=== PATIENT | female | born 1940 | race Caucasian/White ===

== ENCOUNTER 2021-05-10 18:38 | Inpatient (IN) | payer OTHER ==
[2021-05-10 19:13] VITALS: BMI 37.9
[2021-05-10] MEDS ORDERED: DEXAMETHASONE SOD PHOSPHATE 10 MG/1 ML VIAL IVPUSH ONE (20:15)
[2021-05-10] MEDS ORDERED: DEXAMETHASONE SOD PHOSPHATE 4 MG/1 ML VIAL IVPUSH ONE (20:28)
[2021-05-10] MEDS ORDERED: FUROSEMIDE 40 MG/4 ML INJECTABLE VIAL IVPUSH ONE (20:38)
[2021-05-10] MEDS ORDERED: FUROSEMIDE 40 MG/4 ML INJECTABLE VIAL ONE (20:44)
[2021-05-10] MEDS ORDERED: DEXAMETHASONE SOD PHOSPHATE 10 MG/1 ML VIAL ONE (20:44)
[2021-05-10 22:03] LABS: BASO % 0.5 % (0-2.0); EOS % 0.9 % (0-4.5); HEMATOCRIT 22.1 % (32.4-45.2); HEMOGLOBIN 7.2 GM/dL (10.7-15.3); MCH 26.1 pg (25.7-33.7); MCHC 32.6 g/dl (32.0-36.0); MEAN CELL VOLUME 80.2 fl (80-96); MEAN PLT VOLUME 8.4 fl (7.5-11.1); MONO % 11.1 % (3.8-10.2); NEUT % 77.5 % (42.8-82.8); PLATELET COUNT 251 10^3/uL (134-434); RBC 2.76 M/mm3 (3.60-5.2); RDW 16.4 % (11.6-15.6); WHITE BLOOD COUNT 4.8 K/mm3 (4.0-10.0)
[2021-05-10 22:09] LABS: INR 2.25 (0.83-1.09); PROTHROMBIN TIME (PATIENT) 26.5 SEC (9.7-13.0)
[2021-05-10 22:11] LABS: ACTIVATED PTT 45.4 SECONDS (25.2-36.5)
[2021-05-10 22:21] LABS: CHLORIDE 103 mmol/L (98-107); SODIUM 139 mmol/L (136-145)
[2021-05-10 22:23] LABS: CALCIUM 7.9 mg/dL (8.5-10.1)
[2021-05-10 22:24] LABS: ALBUMIN 2.4 g/dl (3.4-5.0); ANION GAP 10 MMOL/L (8-16); BLOOD UREA NITROGEN 38.6 mg/dL (7-18); CO2 27 mmol/L (21-32); GLUCOSE,RANDOM 105 mg/dL (74-106)
[2021-05-10 22:27] LABS: CREATININE 1.2 mg/dL (0.55-1.3); SGOT/AST 25 U/L (15-37); SGPT/ALT 17 U/L (13-61)
[2021-05-10 22:28] LABS: BILIRUBIN,TOTAL 0.5 mg/dL (0.2-1)
[2021-05-10 22:29] LABS: TOT PROT 5.9 g/dl (6.4-8.2)
[2021-05-10 22:30] LABS: ALK PHOS 74 U/L (45-117)
[2021-05-10 22:32] LABS: N-TERMINAL BNP 7477.6 pg/ml (5-450)
[2021-05-11] MEDS ORDERED: ALBUTEROL SO4 2.5/IPRATROPIUM 0.5 INH SOL 3 ML VIAL.NEB. NEB ONE ×3 (07:37→10:55)
[2021-05-11] MEDS ORDERED: ALBUTEROL SO4 0.083% IH SOL 2.5 MG/3 ML VIAL.NEB. NEB PRN (07:40)
[2021-05-11] MEDS ORDERED: ACETAMINOPHEN 325 MG TABLET (FP) PO PRN (07:56)
[2021-05-11] MEDS ORDERED: ALBUTEROL SO4 2.5/IPRATROPIUM 0.5 INH SOL 3 ML VIAL.NEB. NEB SCH (08:00)
[2021-05-11 08:58] LABS: BASO % 0.3 % (0-2.0); HEMATOCRIT 27.4 % (32.4-45.2); LYMPH % 10.6 % (8-40); MCH 26.7 pg (25.7-33.7); MEAN CELL VOLUME 81.1 fl (80-96); MEAN PLT VOLUME 7.9 fl (7.5-11.1); NEUT % 81.1 % (42.8-82.8); PLATELET COUNT 301 10^3/uL (134-434); RBC 3.38 M/mm3 (3.60-5.2); RDW 16.3 % (11.6-15.6); WHITE BLOOD COUNT 4.2 K/mm3 (4.0-10.0)
[2021-05-11] MEDS ORDERED: ASPIRIN 81 MG CHEWABLE TABLETS ONE (09:10)
[2021-05-11] MEDS ORDERED: FUROSEMIDE 40 MG TABLET (FP) ONE (09:10)
[2021-05-11] MEDS ORDERED: ASCORBIC ACID 500 MG TABLET (FP) ONE (09:10)
[2021-05-11] MEDS ORDERED: DEXAMETHASONE SOD PHOSPHATE 10 MG/1 ML VIAL ONE (09:10)
[2021-05-11] MEDS ORDERED: ZINC SULFATE 220 MG CAPSULE (FP) ONE (09:11)
[2021-05-11] MEDS ORDERED: metoPROLOL SUCCINATE 25 MG TAB.SR.24H (FP) ONE (09:11)
[2021-05-11] MEDS ORDERED: BACITRACIN 0.9 GM PACKET ONE ×2 (09:11→09:21)
[2021-05-11] MEDS ORDERED: AMIODARONE HCL 200 MG TABLET ONE (09:11)
[2021-05-11] MEDS ORDERED: APIXABAN 5 MG TABLET ONE (09:11)
[2021-05-11 09:23] LABS: CALCIUM 8.1 mg/dL (8.5-10.1)
[2021-05-11 09:24] LABS: BLOOD UREA NITROGEN 36.2 mg/dL (7-18); MAGNESIUM 1.8 mg/dL (1.8-2.4)
[2021-05-11 09:27] LABS: CREATININE 1.1 mg/dL (0.55-1.3)
[2021-05-11] MEDS: APIXABAN 5 MG TABLET PO SCH ×2 (09:30→22:57)
[2021-05-11] MEDS: ZINC SULFATE 220 MG CAPSULE (FP) PO SCH (09:30)
[2021-05-11] MEDS: ASCORBIC ACID 250 MG TABLET (FP) PO SCH (09:30)
[2021-05-11] MEDS: metoPROLOL SUCCINATE 25 MG TAB.SR.24H (FP) PO SCH (09:30)
[2021-05-11] MEDS: BACITRACIN 15 GM TUBE TOPICAL OINTMENT TP SCH ×2 (09:30→22:57)
[2021-05-11] MEDS: DEXAMETHASONE SOD PHOSPHATE 10 MG/1 ML VIAL IVPUSH SCH (09:30)
[2021-05-11] MEDS: FLUTICASONE/UMECLIDIN/VILANTER(100-62.5-25 TRELEGY ELLIPTA) INAHLER IH SCH (09:47)
[2021-05-11] MEDS: MULTIVITAMINS THER W-MINERALS COMBO TABLET (FP) PO SCH (09:47)
[2021-05-11] MEDS: NYSTATIN 100,000 UNIT/GM TOPICAL CREAM 15 GM TUBE TP SCH ×2 (09:47→23:04)
[2021-05-11] MEDS ORDERED: ASPIRIN 81 MG CHEWABLE TABLETS PO SCH (10:00)
[2021-05-11] MEDS ORDERED: FUROSEMIDE 40 MG TABLET (FP) PO SCH (10:00)
[2021-05-11] MEDS ORDERED: AMIODARONE HCL 200 MG TABLET PO SCH (10:00)
[2021-05-11] MEDS ORDERED: CHOLECALCIFEROL (VIT D3) 5000 UNITS (125 MCG) CAP PO ONE (10:00)
[2021-05-11] MEDS ORDERED: REMDESIVIR 200 MG in SODIUM CHLORIDE 250 ML IVPB ONE (17:30)
[2021-05-11] MEDS ORDERED: DOCUSATE SODIUM 100 MG CAPSULE (FP) PO SCH (22:00)
[2021-05-11] MEDS ORDERED: TERAZOSIN HCL 5 MG CAPSULE PO SCH (22:00)
[2021-05-11] MEDS: EZETIMIBE 10 MG TABLET (FP) PO SCH (22:57)
[2021-05-11] MEDS: MONTELUKAST NA 10 MG TABLET PO SCH (22:57)
[2021-05-11] MEDS: ATORVASTATIN CA 40 MG TABLET (FP) PO SCH (22:57)
[2021-05-12] MEDS: TOLTERODINE TARTRATE LA 4 MG CAP.SR.24H (FP) PO SCH ×2 (01:12→21:24)
[2021-05-12] MEDS ORDERED: PT OWN MED DRAWER 7, Y5N ONE ×4 (09:18→20:35)
[2021-05-12] MEDS: FUROSEMIDE 40 MG/4 ML INJECTABLE VIAL IVPUSH SCH (09:51)
[2021-05-12] MEDS: DEXAMETHASONE SOD PHOSPHATE 10 MG/1 ML VIAL IVPUSH SCH (09:52)
[2021-05-12] MEDS: MULTIVITAMINS THER W-MINERALS COMBO TABLET (FP) PO SCH (09:53)
[2021-05-12] MEDS: ZINC SULFATE 220 MG CAPSULE (FP) PO SCH (09:53)
[2021-05-12] MEDS: metoPROLOL SUCCINATE 25 MG TAB.SR.24H (FP) PO SCH (09:53)
[2021-05-12] MEDS: AMIODARONE HCL 200 MG TABLET PO SCH (09:54)
[2021-05-12] MEDS: APIXABAN 5 MG TABLET PO SCH ×2 (09:54→21:24)
[2021-05-12] MEDS: ASCORBIC ACID 250 MG TABLET (FP) PO SCH (09:54)
[2021-05-12] MEDS: FLUTICASONE/UMECLIDIN/VILANTER(100-62.5-25 TRELEGY ELLIPTA) INAHLER IH SCH (09:56)
[2021-05-12] MEDS: CHOLECALCIFEROL (VIT D3) 1,000 UNIT (25 MCG) TABLET PO SCH (10:01)
[2021-05-12] MEDS: BACITRACIN 15 GM TUBE TOPICAL OINTMENT TP SCH ×2 (12:12→21:24)
[2021-05-12] MEDS: NYSTATIN 100,000 UNIT/GM TOPICAL CREAM 15 GM TUBE TP SCH ×2 (12:13→21:24)
[2021-05-12] MEDS ORDERED: DEXTROSE 5%-WATER 100 ML IVPB ONE (15:48)
[2021-05-12] MEDS: CEFTRIAXONE 2 GM in DEXTROSE 5%-WATER 2 GM/100 ML BAG IVPB SCH (16:05)
[2021-05-12] MEDS ORDERED: BISMUTH SUBSALICYLATE 524 MG/30 ML PO PRN (17:21)
[2021-05-12] MEDS: REMDESIVIR 100 MG in SODIUM CHLORIDE 250 ML IVPB SCH (18:14)
[2021-05-12] MEDS: ATORVASTATIN CA 40 MG TABLET (FP) PO SCH (21:24)
[2021-05-12] MEDS: MONTELUKAST NA 10 MG TABLET PO SCH (21:25)
[2021-05-12] MEDS: EZETIMIBE 10 MG TABLET (FP) PO SCH (21:25)
[2021-05-13] MEDS ORDERED: DEXTROSE 5%-WATER 100 ML IVPB ONE (09:20)
[2021-05-13] MEDS: CEFTRIAXONE 2 GM in DEXTROSE 5%-WATER 2 GM/100 ML BAG IVPB SCH (09:37)
[2021-05-13] MEDS: metoPROLOL SUCCINATE 25 MG TAB.SR.24H (FP) PO SCH (09:37)
[2021-05-13] MEDS: MULTIVITAMINS THER W-MINERALS COMBO TABLET (FP) PO SCH (09:38)
[2021-05-13] MEDS: CHOLECALCIFEROL (VIT D3) 1,000 UNIT (25 MCG) TABLET PO SCH (09:38)
[2021-05-13] MEDS: AMIODARONE HCL 200 MG TABLET PO SCH (09:38)
[2021-05-13] MEDS: APIXABAN 5 MG TABLET PO SCH ×2 (09:38→21:58)
[2021-05-13] MEDS: DEXAMETHASONE SOD PHOSPHATE 10 MG/1 ML VIAL IVPUSH SCH ×3 (09:38→21:55)
[2021-05-13] MEDS: ZINC SULFATE 220 MG CAPSULE (FP) PO SCH (09:38)
[2021-05-13] MEDS: FUROSEMIDE 40 MG/4 ML INJECTABLE VIAL IVPUSH SCH (09:39)
[2021-05-13] MEDS: ASCORBIC ACID 250 MG TABLET (FP) PO SCH (09:39)
[2021-05-13] MEDS: ALBUTEROL SO4 HFA INHALER IH PRN (09:39)
[2021-05-13] MEDS: BACITRACIN 15 GM TUBE TOPICAL OINTMENT TP SCH ×2 (09:39→21:55)
[2021-05-13] MEDS: NYSTATIN 100,000 UNIT/GM TOPICAL CREAM 15 GM TUBE TP SCH ×2 (09:39→21:58)
[2021-05-13] MEDS: FLUTICASONE/UMECLIDIN/VILANTER(100-62.5-25 TRELEGY ELLIPTA) INAHLER IH SCH (09:39)
[2021-05-13] MEDS: PANTOPRAZOLE SODIUM 40 MG VIAL IVPUSH SCH (09:39)
[2021-05-13] MEDS: REMDESIVIR 100 MG in SODIUM CHLORIDE 250 ML IVPB SCH (17:32)
[2021-05-13] MEDS: ATORVASTATIN CA 40 MG TABLET (FP) PO SCH (21:58)
[2021-05-13] MEDS: EZETIMIBE 10 MG TABLET (FP) PO SCH (21:58)
[2021-05-13] MEDS: TOLTERODINE TARTRATE LA 4 MG CAP.SR.24H (FP) PO SCH (21:58)
[2021-05-13] MEDS: MONTELUKAST NA 10 MG TABLET PO SCH (21:58)
[2021-05-14 07:55] LABS: CALCIUM 7.9 mg/dL (8.5-10.1)
[2021-05-14 07:56] LABS: ALBUMIN 2.3 g/dl (3.4-5.0)
[2021-05-14 08:00] LABS: BILIRUBIN,TOTAL 0.5 mg/dL (0.2-1); TOT PROT 5.3 g/dl (6.4-8.2)
[2021-05-14 08:02] LABS: BLOOD UREA NITROGEN 39.3 mg/dL (7-18)
[2021-05-14] MEDS ORDERED: PT OWN MED DRAWER 7, Y5N ONE ×2 (09:27→21:42)
[2021-05-14] MEDS ORDERED: DEXTROSE 5%-WATER 100 ML IVPB ONE (09:28)
[2021-05-14] MEDS: CHOLECALCIFEROL (VIT D3) 1,000 UNIT (25 MCG) TABLET PO SCH (09:37)
[2021-05-14] MEDS: MULTIVITAMINS THER W-MINERALS COMBO TABLET (FP) PO SCH (09:37)
[2021-05-14] MEDS: APIXABAN 5 MG TABLET PO SCH ×2 (09:37→21:46)
[2021-05-14] MEDS: ZINC SULFATE 220 MG CAPSULE (FP) PO SCH (09:37)
[2021-05-14] MEDS: PANTOPRAZOLE SODIUM 40 MG VIAL IVPUSH SCH (09:37)
[2021-05-14] MEDS: ASCORBIC ACID 250 MG TABLET (FP) PO SCH (09:37)
[2021-05-14] MEDS: AMIODARONE HCL 200 MG TABLET PO SCH (09:38)
[2021-05-14] MEDS: BACITRACIN 15 GM TUBE TOPICAL OINTMENT TP SCH ×2 (09:38→21:47)
[2021-05-14] MEDS: DEXAMETHASONE SOD PHOSPHATE 10 MG/1 ML VIAL IVPUSH SCH (09:38)
[2021-05-14] MEDS: metoPROLOL SUCCINATE 25 MG TAB.SR.24H (FP) PO SCH (09:39)
[2021-05-14] MEDS: FLUTICASONE/UMECLIDIN/VILANTER(100-62.5-25 TRELEGY ELLIPTA) INAHLER IH SCH (09:39)
[2021-05-14] MEDS: CEFTRIAXONE 2 GM in DEXTROSE 5%-WATER 2 GM/100 ML BAG IVPB SCH (09:39)
[2021-05-14] MEDS: NYSTATIN 100,000 UNIT/GM TOPICAL CREAM 15 GM TUBE TP SCH ×2 (09:39→21:47)
[2021-05-14] MEDS: FUROSEMIDE 40 MG/4 ML INJECTABLE VIAL IVPUSH SCH (09:39)
[2021-05-14] MEDS: REMDESIVIR 100 MG in SODIUM CHLORIDE 250 ML IVPB SCH (17:04)
[2021-05-14] MEDS: methylPREDNISolone NA SUCC 40 MG/1 ML VIAL IVPUSH SCH ×2 (17:04→21:46)
[2021-05-14] MEDS: MONTELUKAST NA 10 MG TABLET PO SCH (21:46)
[2021-05-14] MEDS: ATORVASTATIN CA 40 MG TABLET (FP) PO SCH (21:46)
[2021-05-14] MEDS: EZETIMIBE 10 MG TABLET (FP) PO SCH (21:46)
[2021-05-14] MEDS: TOLTERODINE TARTRATE LA 4 MG CAP.SR.24H (FP) PO SCH (21:47)
[2021-05-15] MEDS: methylPREDNISolone NA SUCC 40 MG/1 ML VIAL IVPUSH SCH ×4 (02:27→21:12)
[2021-05-15 08:10] LABS: HEMATOCRIT 27.4 % (32.4-45.2); LYMPH % 6.6 % (8-40); MCH 26.3 pg (25.7-33.7); MCHC 32.6 g/dl (32.0-36.0); MEAN CELL VOLUME 80.8 fl (80-96); MEAN PLT VOLUME 8.4 fl (7.5-11.1); MONO % 4.9 % (3.8-10.2); NEUT % 88.5 % (42.8-82.8); PLATELET COUNT 371 10^3/uL (134-434)
[2021-05-15 08:33] LABS: CALCIUM 8.2 mg/dL (8.5-10.1)
[2021-05-15 08:34] LABS: ALBUMIN 2.3 g/dl (3.4-5.0)
[2021-05-15 08:37] LABS: CREATININE 0.9 mg/dL (0.55-1.3)
[2021-05-15 08:39] LABS: BILIRUBIN,TOTAL 0.8 mg/dL (0.2-1); TOT PROT 5.5 g/dl (6.4-8.2)
[2021-05-15] MEDS ORDERED: DEXTROSE 5%-WATER 100 ML IVPB ONE (09:01)
[2021-05-15] MEDS: CEFTRIAXONE 2 GM in DEXTROSE 5%-WATER 2 GM/100 ML BAG IVPB SCH (10:04)
[2021-05-15] MEDS: ZINC SULFATE 220 MG CAPSULE (FP) PO SCH (10:06)
[2021-05-15] MEDS: FUROSEMIDE 40 MG/4 ML INJECTABLE VIAL IVPUSH SCH (10:06)
[2021-05-15] MEDS: APIXABAN 5 MG TABLET PO SCH ×2 (10:06→21:16)
[2021-05-15] MEDS: PANTOPRAZOLE SODIUM 40 MG VIAL IVPUSH SCH (10:06)
[2021-05-15] MEDS: metoPROLOL SUCCINATE 25 MG TAB.SR.24H (FP) PO SCH (10:07)
[2021-05-15] MEDS: MULTIVITAMINS THER W-MINERALS COMBO TABLET (FP) PO SCH (10:07)
[2021-05-15] MEDS: CHOLECALCIFEROL (VIT D3) 1,000 UNIT (25 MCG) TABLET PO SCH (10:07)
[2021-05-15] MEDS: ASCORBIC ACID 250 MG TABLET (FP) PO SCH (10:07)
[2021-05-15] MEDS: AMIODARONE HCL 200 MG TABLET PO SCH (10:07)
[2021-05-15] MEDS: FLUTICASONE/UMECLIDIN/VILANTER(100-62.5-25 TRELEGY ELLIPTA) INAHLER IH SCH (10:08)
[2021-05-15] MEDS: BACITRACIN 15 GM TUBE TOPICAL OINTMENT TP SCH ×2 (10:08→21:13)
[2021-05-15] MEDS: NYSTATIN 100,000 UNIT/GM TOPICAL CREAM 15 GM TUBE TP SCH ×2 (10:08→23:51)
[2021-05-15] MEDS: ALBUTEROL SO4 HFA INHALER IH PRN (10:42)
[2021-05-15] MEDS ORDERED: PT OWN MED DRAWER 7, Y5N ONE ×3 (12:15→20:52)
[2021-05-15] MEDS: REMDESIVIR 100 MG in SODIUM CHLORIDE 250 ML IVPB SCH (18:45)
[2021-05-15] MEDS: TOLTERODINE TARTRATE LA 4 MG CAP.SR.24H (FP) PO SCH (21:12)
[2021-05-15] MEDS: ATORVASTATIN CA 40 MG TABLET (FP) PO SCH (21:12)
[2021-05-15] MEDS: EZETIMIBE 10 MG TABLET (FP) PO SCH (21:12)
[2021-05-15] MEDS: MONTELUKAST NA 10 MG TABLET PO SCH (21:12)
[2021-05-15] MEDS: MELATONIN 5 MG TABLETS PO PRN (21:12)
[2021-05-16] MEDS: methylPREDNISolone NA SUCC 40 MG/1 ML VIAL IVPUSH SCH ×4 (02:47→21:53)
[2021-05-16] MEDS ORDERED: DEXTROSE 5%-WATER 100 ML IVPB ONE (09:49)
[2021-05-16] MEDS ORDERED: PT OWN MED DRAWER 7, Y5N ONE ×2 (09:49→21:00)
[2021-05-16] MEDS: metoPROLOL SUCCINATE 25 MG TAB.SR.24H (FP) PO SCH (09:55)
[2021-05-16] MEDS: AMIODARONE HCL 200 MG TABLET PO SCH (09:55)
[2021-05-16] MEDS: MULTIVITAMINS THER W-MINERALS COMBO TABLET (FP) PO SCH (09:55)
[2021-05-16] MEDS: ZINC SULFATE 220 MG CAPSULE (FP) PO SCH (09:56)
[2021-05-16] MEDS: CHOLECALCIFEROL (VIT D3) 1,000 UNIT (25 MCG) TABLET PO SCH (09:56)
[2021-05-16] MEDS: FUROSEMIDE 40 MG/4 ML INJECTABLE VIAL IVPUSH SCH (09:56)
[2021-05-16] MEDS: APIXABAN 5 MG TABLET PO SCH ×2 (09:56→21:52)
[2021-05-16] MEDS: PANTOPRAZOLE SODIUM 40 MG VIAL IVPUSH SCH (09:56)
[2021-05-16] MEDS: BACITRACIN 15 GM TUBE TOPICAL OINTMENT TP SCH ×2 (09:57→21:51)
[2021-05-16] MEDS: CEFTRIAXONE 2 GM in DEXTROSE 5%-WATER 2 GM/100 ML BAG IVPB SCH (09:58)
[2021-05-16] MEDS: ASCORBIC ACID 250 MG TABLET (FP) PO SCH (09:58)
[2021-05-16] MEDS: NYSTATIN 100,000 UNIT/GM TOPICAL CREAM 15 GM TUBE TP SCH (09:58)
[2021-05-16] MEDS: FLUTICASONE/UMECLIDIN/VILANTER(100-62.5-25 TRELEGY ELLIPTA) INAHLER IH SCH (09:58)
[2021-05-16] MEDS: NYSTATIN 100000 UNIT/GM TOPICAL OINTMENT 15 GM TUBE TP SCH ×2 (12:09→21:53)
[2021-05-16] MEDS: ZINC OXIDE 20% TOPICAL OINTMENT 30 GM TUBE TP SCH ×2 (12:10→21:54)
[2021-05-16] MEDS: TOLTERODINE TARTRATE LA 4 MG CAP.SR.24H (FP) PO SCH (21:51)
[2021-05-16] MEDS: ATORVASTATIN CA 40 MG TABLET (FP) PO SCH (21:52)
[2021-05-16] MEDS: MONTELUKAST NA 10 MG TABLET PO SCH (21:52)
[2021-05-16] MEDS: MELATONIN 5 MG TABLETS PO PRN (21:53)
[2021-05-16] MEDS: EZETIMIBE 10 MG TABLET (FP) PO SCH (21:53)
[2021-05-17] MEDS: methylPREDNISolone NA SUCC 40 MG/1 ML VIAL IVPUSH SCH ×3 (02:30→15:04)
[2021-05-17] MEDS ORDERED: PT OWN MED DRAWER 7, Y5N ONE ×2 (08:46→21:27)
[2021-05-17] MEDS ORDERED: DEXTROSE 5%-WATER 100 ML IVPB ONE (08:47)
[2021-05-17] MEDS: MULTIVITAMINS THER W-MINERALS COMBO TABLET (FP) PO SCH (09:02)
[2021-05-17] MEDS: CHOLECALCIFEROL (VIT D3) 1,000 UNIT (25 MCG) TABLET PO SCH (09:02)
[2021-05-17] MEDS: ZINC SULFATE 220 MG CAPSULE (FP) PO SCH (09:02)
[2021-05-17] MEDS: AMIODARONE HCL 200 MG TABLET PO SCH (09:02)
[2021-05-17] MEDS: APIXABAN 5 MG TABLET PO SCH ×2 (09:02→21:33)
[2021-05-17] MEDS: ASCORBIC ACID 250 MG TABLET (FP) PO SCH (09:02)
[2021-05-17] MEDS: metoPROLOL SUCCINATE 25 MG TAB.SR.24H (FP) PO SCH (09:02)
[2021-05-17] MEDS: PANTOPRAZOLE 40 MG TABLET PO SCH (09:02)
[2021-05-17] MEDS: CEFTRIAXONE 2 GM in DEXTROSE 5%-WATER 2 GM/100 ML BAG IVPB SCH (09:02)
[2021-05-17] MEDS: FUROSEMIDE 40 MG/4 ML INJECTABLE VIAL IVPUSH SCH (09:02)
[2021-05-17] MEDS: NYSTATIN 100000 UNIT/GM TOPICAL OINTMENT 15 GM TUBE TP SCH ×2 (09:03→21:33)
[2021-05-17] MEDS: FLUTICASONE/UMECLIDIN/VILANTER(100-62.5-25 TRELEGY ELLIPTA) INAHLER IH SCH (09:03)
[2021-05-17] MEDS: ZINC OXIDE 20% TOPICAL OINTMENT 30 GM TUBE TP SCH ×2 (09:03→21:33)
[2021-05-17] MEDS: BACITRACIN 15 GM TUBE TOPICAL OINTMENT TP SCH ×2 (09:03→21:30)
[2021-05-17] MEDS: TOLTERODINE TARTRATE LA 4 MG CAP.SR.24H (FP) PO SCH (21:33)
[2021-05-17] MEDS: EZETIMIBE 10 MG TABLET (FP) PO SCH (21:33)
[2021-05-17] MEDS: ATORVASTATIN CA 40 MG TABLET (FP) PO SCH (21:33)
[2021-05-17] MEDS: MONTELUKAST NA 10 MG TABLET PO SCH (21:33)
[2021-05-17] MEDS: MELATONIN 5 MG TABLETS PO PRN (21:36)
[2021-05-18] MEDS: methylPREDNISolone NA SUCC 40 MG/1 ML VIAL IVPUSH SCH ×3 (01:18→21:12)
[2021-05-18 06:41] LABS: HEMATOCRIT 29.8 % (32.4-45.2); HEMOGLOBIN 9.7 GM/dL (10.7-15.3); MCH 26.2 pg (25.7-33.7); MCHC 32.5 g/dl (32.0-36.0); MEAN CELL VOLUME 80.5 fl (80-96); MEAN PLT VOLUME 8.4 fl (7.5-11.1); PLATELET COUNT 390 10^3/uL (134-434); RDW 17.4 % (11.6-15.6); WHITE BLOOD COUNT 12.8 K/mm3 (4.0-10.0)
[2021-05-18 06:58] LABS: CALCIUM 7.7 mg/dL (8.5-10.1)
[2021-05-18 06:59] LABS: ALBUMIN 2.2 g/dl (3.4-5.0); BLOOD UREA NITROGEN 41.6 mg/dL (7-18)
[2021-05-18 07:02] LABS: CREATININE 1.1 mg/dL (0.55-1.3)
[2021-05-18 07:03] LABS: BILIRUBIN,TOTAL 0.5 mg/dL (0.2-1)
[2021-05-18 07:04] LABS: TOT PROT 5.2 g/dl (6.4-8.2)
[2021-05-18] MEDS ORDERED: PT OWN MED DRAWER 7, Y5N ONE ×2 (08:34→21:01)
[2021-05-18] MEDS ORDERED: DEXTROSE 5%-WATER 100 ML IVPB ONE (08:34)
[2021-05-18] MEDS: CEFTRIAXONE 2 GM in DEXTROSE 5%-WATER 2 GM/100 ML BAG IVPB SCH (09:37)
[2021-05-18] MEDS: FUROSEMIDE 40 MG/4 ML INJECTABLE VIAL IVPUSH SCH (09:37)
[2021-05-18] MEDS: ZINC SULFATE 220 MG CAPSULE (FP) PO SCH (09:37)
[2021-05-18] MEDS: PANTOPRAZOLE 40 MG TABLET PO SCH (09:37)
[2021-05-18] MEDS: metoPROLOL SUCCINATE 25 MG TAB.SR.24H (FP) PO SCH (09:38)
[2021-05-18] MEDS: CHOLECALCIFEROL (VIT D3) 1,000 UNIT (25 MCG) TABLET PO SCH (09:38)
[2021-05-18] MEDS: AMIODARONE HCL 200 MG TABLET PO SCH (09:38)
[2021-05-18] MEDS: NYSTATIN 100000 UNIT/GM TOPICAL OINTMENT 15 GM TUBE TP SCH ×2 (09:38→21:13)
[2021-05-18] MEDS: FLUTICASONE/UMECLIDIN/VILANTER(100-62.5-25 TRELEGY ELLIPTA) INAHLER IH SCH (09:38)
[2021-05-18] MEDS: MULTIVITAMINS THER W-MINERALS COMBO TABLET (FP) PO SCH (09:38)
[2021-05-18] MEDS: APIXABAN 5 MG TABLET PO SCH ×2 (09:38→21:12)
[2021-05-18] MEDS: BACITRACIN 15 GM TUBE TOPICAL OINTMENT TP SCH ×2 (09:38→21:12)
[2021-05-18] MEDS: ZINC OXIDE 20% TOPICAL OINTMENT 30 GM TUBE TP SCH ×2 (09:39→21:13)
[2021-05-18] MEDS: ASCORBIC ACID 250 MG TABLET (FP) PO SCH (09:39)
[2021-05-18 10:34] LABS: ANISOCYTOSIS 1+; MACROCYTOSIS 0; PLATELET ESTIMATE NORMAL
[2021-05-18] MEDS: EZETIMIBE 10 MG TABLET (FP) PO SCH (21:12)
[2021-05-18] MEDS: ATORVASTATIN CA 40 MG TABLET (FP) PO SCH (21:12)
[2021-05-18] MEDS: MONTELUKAST NA 10 MG TABLET PO SCH (21:12)
[2021-05-18] MEDS: TOLTERODINE TARTRATE LA 4 MG CAP.SR.24H (FP) PO SCH (21:12)
[2021-05-19] MEDS ORDERED: PT OWN MED DRAWER 7, Y5N ONE ×3 (09:50→21:29)
[2021-05-19] MEDS: MULTIVITAMINS THER W-MINERALS COMBO TABLET (FP) PO SCH (09:53)
[2021-05-19] MEDS: CHOLECALCIFEROL (VIT D3) 1,000 UNIT (25 MCG) TABLET PO SCH (09:53)
[2021-05-19] MEDS: APIXABAN 5 MG TABLET PO SCH ×2 (09:53→21:33)
[2021-05-19] MEDS: metoPROLOL SUCCINATE 25 MG TAB.SR.24H (FP) PO SCH (09:53)
[2021-05-19] MEDS: AMIODARONE HCL 200 MG TABLET PO SCH (09:53)
[2021-05-19] MEDS: ZINC SULFATE 220 MG CAPSULE (FP) PO SCH (09:53)
[2021-05-19] MEDS: ASCORBIC ACID 250 MG TABLET (FP) PO SCH (09:53)
[2021-05-19] MEDS: PANTOPRAZOLE 40 MG TABLET PO SCH (09:54)
[2021-05-19] MEDS: CEFUROXIME AXETIL 500 MG TABLET PO SCH ×2 (09:54→17:22)
[2021-05-19] MEDS: FUROSEMIDE 40 MG/4 ML INJECTABLE VIAL IVPUSH SCH (09:56)
[2021-05-19] MEDS: BACITRACIN 15 GM TUBE TOPICAL OINTMENT TP SCH ×2 (09:56→21:33)
[2021-05-19] MEDS: ZINC OXIDE 20% TOPICAL OINTMENT 30 GM TUBE TP SCH ×2 (09:56→21:33)
[2021-05-19] MEDS: NYSTATIN 100000 UNIT/GM TOPICAL OINTMENT 15 GM TUBE TP SCH ×2 (09:56→21:33)
[2021-05-19] MEDS: FLUTICASONE/UMECLIDIN/VILANTER(100-62.5-25 TRELEGY ELLIPTA) INAHLER IH SCH (09:56)
[2021-05-19] MEDS: methylPREDNISolone NA SUCC 40 MG/1 ML VIAL IVPUSH SCH ×2 (09:56→21:32)
[2021-05-19] MEDS: MELATONIN 5 MG TABLETS PO PRN (21:32)
[2021-05-19] MEDS: ATORVASTATIN CA 40 MG TABLET (FP) PO SCH (21:33)
[2021-05-19] MEDS: TOLTERODINE TARTRATE LA 4 MG CAP.SR.24H (FP) PO SCH (21:33)
[2021-05-19] MEDS: EZETIMIBE 10 MG TABLET (FP) PO SCH (21:33)
[2021-05-19] MEDS: MONTELUKAST NA 10 MG TABLET PO SCH (21:33)
[2021-05-20] MEDS: ALBUTEROL SO4 HFA INHALER IH PRN (10:00)
[2021-05-20] MEDS: CHOLECALCIFEROL (VIT D3) 1,000 UNIT (25 MCG) TABLET PO SCH (10:13)
[2021-05-20] MEDS: PANTOPRAZOLE 40 MG TABLET PO SCH (10:13)
[2021-05-20] MEDS: metoPROLOL SUCCINATE 25 MG TAB.SR.24H (FP) PO SCH (10:14)
[2021-05-20] MEDS: FUROSEMIDE 40 MG/4 ML INJECTABLE VIAL IVPUSH SCH (10:14)
[2021-05-20] MEDS: AMIODARONE HCL 200 MG TABLET PO SCH (10:14)
[2021-05-20] MEDS: methylPREDNISolone NA SUCC 40 MG/1 ML VIAL IVPUSH SCH ×2 (10:14→17:40)
[2021-05-20] MEDS: MULTIVITAMINS THER W-MINERALS COMBO TABLET (FP) PO SCH (10:14)
[2021-05-20] MEDS: APIXABAN 5 MG TABLET PO SCH ×2 (10:14→21:31)
[2021-05-20] MEDS: ASCORBIC ACID 250 MG TABLET (FP) PO SCH (10:14)
[2021-05-20] MEDS: FLUTICASONE/UMECLIDIN/VILANTER(100-62.5-25 TRELEGY ELLIPTA) INAHLER IH SCH (10:15)
[2021-05-20] MEDS: NYSTATIN 100000 UNIT/GM TOPICAL OINTMENT 15 GM TUBE TP SCH ×2 (10:15→21:31)
[2021-05-20] MEDS: ZINC OXIDE 20% TOPICAL OINTMENT 30 GM TUBE TP SCH ×2 (10:15→21:31)
[2021-05-20] MEDS: BACITRACIN 15 GM TUBE TOPICAL OINTMENT TP SCH ×2 (10:15→21:32)
[2021-05-20] MEDS: CEFUROXIME AXETIL 500 MG TABLET PO SCH ×2 (10:15→17:40)
[2021-05-20] MEDS: ZINC SULFATE 220 MG CAPSULE (FP) PO SCH (10:15)
[2021-05-20] MEDS ORDERED: PT OWN MED DRAWER 7, Y5N ONE ×2 (18:09→21:18)
[2021-05-20] MEDS: MONTELUKAST NA 10 MG TABLET PO SCH (21:30)
[2021-05-20] MEDS: EZETIMIBE 10 MG TABLET (FP) PO SCH (21:30)
[2021-05-20] MEDS: ATORVASTATIN CA 40 MG TABLET (FP) PO SCH (21:31)
[2021-05-20] MEDS: TOLTERODINE TARTRATE LA 4 MG CAP.SR.24H (FP) PO SCH (21:32)
[2021-05-21] MEDS: methylPREDNISolone NA SUCC 40 MG/1 ML VIAL IVPUSH SCH ×3 (02:20→21:00)
[2021-05-21] MEDS: CEFUROXIME AXETIL 500 MG TABLET PO SCH ×2 (08:35→16:59)
[2021-05-21] MEDS ORDERED: PT OWN MED DRAWER 7, Y5N ONE ×2 (09:00→20:50)
[2021-05-21] MEDS: ASCORBIC ACID 250 MG TABLET (FP) PO SCH (09:33)
[2021-05-21] MEDS: APIXABAN 5 MG TABLET PO SCH ×2 (09:33→21:01)
[2021-05-21] MEDS: AMIODARONE HCL 200 MG TABLET PO SCH (09:33)
[2021-05-21] MEDS: CHOLECALCIFEROL (VIT D3) 1,000 UNIT (25 MCG) TABLET PO SCH (09:33)
[2021-05-21] MEDS: PANTOPRAZOLE 40 MG TABLET PO SCH (09:34)
[2021-05-21] MEDS: metoPROLOL SUCCINATE 25 MG TAB.SR.24H (FP) PO SCH (09:34)
[2021-05-21] MEDS: BACITRACIN 15 GM TUBE TOPICAL OINTMENT TP SCH ×2 (09:35→21:01)
[2021-05-21] MEDS: FUROSEMIDE 40 MG/4 ML INJECTABLE VIAL IVPUSH SCH (09:35)
[2021-05-21] MEDS: FLUTICASONE/UMECLIDIN/VILANTER(100-62.5-25 TRELEGY ELLIPTA) INAHLER IH SCH (09:36)
[2021-05-21] MEDS: ZINC OXIDE 20% TOPICAL OINTMENT 30 GM TUBE TP SCH ×2 (09:36→21:00)
[2021-05-21] MEDS: ZINC SULFATE 220 MG CAPSULE (FP) PO SCH (09:36)
[2021-05-21] MEDS: NYSTATIN 100000 UNIT/GM TOPICAL OINTMENT 15 GM TUBE TP SCH ×2 (09:36→21:00)
[2021-05-21] MEDS: MULTIVITAMINS THER W-MINERALS COMBO TABLET (FP) PO SCH (09:36)
[2021-05-21] MEDS ORDERED: methylPREDNISolone NA SUCC 40 MG/1 ML VIAL IVPUSH SCH ×2 (10:00→12:45)
[2021-05-21] MEDS: EZETIMIBE 10 MG TABLET (FP) PO SCH (21:00)
[2021-05-21] MEDS: ATORVASTATIN CA 40 MG TABLET (FP) PO SCH (21:00)
[2021-05-21] MEDS: MONTELUKAST NA 10 MG TABLET PO SCH (21:00)
[2021-05-21] MEDS: TOLTERODINE TARTRATE LA 4 MG CAP.SR.24H (FP) PO SCH (21:00)
[2021-05-22] MEDS ORDERED: BISMUTH SUBSALICYLATE 524 MG/30 ML PO PRN (07:31)
[2021-05-22] MEDS ORDERED: ACETAMINOPHEN 325 MG TABLET (FP) PO PRN (07:31)
[2021-05-22] MEDS ORDERED: ALBUTEROL SO4 HFA INHALER IH PRN (07:31)
[2021-05-22] MEDS ORDERED: PT OWN MED DRAWER 7, Y5N ONE (10:55)
[2021-05-22] MEDS: metoPROLOL SUCCINATE 25 MG TAB.SR.24H (FP) PO SCH (11:33)
[2021-05-22] MEDS: CHOLECALCIFEROL (VIT D3) 1,000 UNIT (25 MCG) TABLET PO SCH (11:33)
[2021-05-22] MEDS: MULTIVITAMINS THER W-MINERALS COMBO TABLET (FP) PO SCH (11:33)
[2021-05-22] MEDS: APIXABAN 5 MG TABLET PO SCH ×2 (11:33→22:27)
[2021-05-22] MEDS: CEFUROXIME AXETIL 500 MG TABLET PO SCH ×2 (11:33→19:08)
[2021-05-22] MEDS: BACITRACIN 15 GM TUBE TOPICAL OINTMENT TP SCH ×2 (11:34→22:28)
[2021-05-22] MEDS: FUROSEMIDE 40 MG/4 ML INJECTABLE VIAL IVPUSH SCH (11:34)
[2021-05-22] MEDS: ZINC SULFATE 220 MG CAPSULE (FP) PO SCH (11:34)
[2021-05-22] MEDS: AMIODARONE HCL 200 MG TABLET PO SCH (11:34)
[2021-05-22] MEDS: NYSTATIN 100000 UNIT/GM TOPICAL OINTMENT 15 GM TUBE TP SCH ×2 (11:34→22:27)
[2021-05-22] MEDS: ASCORBIC ACID 250 MG TABLET (FP) PO SCH (11:34)
[2021-05-22] MEDS: methylPREDNISolone NA SUCC 40 MG/1 ML VIAL IVPUSH SCH ×2 (11:34→22:32)
[2021-05-22] MEDS: PANTOPRAZOLE 40 MG TABLET PO SCH (11:34)
[2021-05-22] MEDS: guaiFENesin/D-METHORPHAN HB 10 ML UNIT-DOSE CUPS PO PRN (11:35)
[2021-05-22] MEDS: ZINC OXIDE 20% TOPICAL OINTMENT 30 GM TUBE TP SCH ×2 (11:35→22:33)
[2021-05-22] MEDS: FLUTICASONE/UMECLIDIN/VILANTER(100-62.5-25 TRELEGY ELLIPTA) INAHLER IH SCH (11:40)
[2021-05-22] MEDS: MONTELUKAST NA 10 MG TABLET PO SCH (22:27)
[2021-05-22] MEDS: EZETIMIBE 10 MG TABLET (FP) PO SCH (22:27)
[2021-05-22] MEDS: ATORVASTATIN CA 40 MG TABLET (FP) PO SCH (22:27)
[2021-05-22] MEDS: TOLTERODINE TARTRATE LA 4 MG CAP.SR.24H (FP) PO SCH (23:02)
[2021-05-23] MEDS ORDERED: PT OWN MED DRAWER 7, Y5N ONE (10:28)
[2021-05-23] MEDS: AMIODARONE HCL 200 MG TABLET PO SCH (10:50)
[2021-05-23] MEDS: ZINC SULFATE 220 MG CAPSULE (FP) PO SCH (10:51)
[2021-05-23] MEDS: guaiFENesin/D-METHORPHAN HB 10 ML UNIT-DOSE CUPS PO PRN ×2 (10:51→22:37)
[2021-05-23] MEDS: ASCORBIC ACID 250 MG TABLET (FP) PO SCH (10:51)
[2021-05-23] MEDS: CEFUROXIME AXETIL 500 MG TABLET PO SCH ×2 (10:51→18:01)
[2021-05-23] MEDS: ZINC OXIDE 20% TOPICAL OINTMENT 30 GM TUBE TP SCH ×2 (10:51→22:40)
[2021-05-23] MEDS: MULTIVITAMINS THER W-MINERALS COMBO TABLET (FP) PO SCH (10:51)
[2021-05-23] MEDS: PANTOPRAZOLE 40 MG TABLET PO SCH (10:51)
[2021-05-23] MEDS: metoPROLOL SUCCINATE 25 MG TAB.SR.24H (FP) PO SCH (10:51)
[2021-05-23] MEDS: APIXABAN 5 MG TABLET PO SCH ×2 (10:51→22:34)
[2021-05-23] MEDS: CHOLECALCIFEROL (VIT D3) 1,000 UNIT (25 MCG) TABLET PO SCH (10:51)
[2021-05-23] MEDS: FLUTICASONE/UMECLIDIN/VILANTER(100-62.5-25 TRELEGY ELLIPTA) INAHLER IH SCH (11:20)
[2021-05-23] MEDS: FUROSEMIDE 40 MG/4 ML INJECTABLE VIAL IVPUSH SCH (11:22)
[2021-05-23] MEDS: NYSTATIN 100000 UNIT/GM TOPICAL OINTMENT 15 GM TUBE TP SCH ×2 (11:22→22:41)
[2021-05-23] MEDS: methylPREDNISolone NA SUCC 40 MG/1 ML VIAL IVPUSH SCH ×2 (11:22→11:25)
[2021-05-23] MEDS: BACITRACIN 15 GM TUBE TOPICAL OINTMENT TP SCH ×2 (11:22→22:40)
[2021-05-23] MEDS: ATORVASTATIN CA 40 MG TABLET (FP) PO SCH (22:34)
[2021-05-23] MEDS: EZETIMIBE 10 MG TABLET (FP) PO SCH (22:34)
[2021-05-23] MEDS: MONTELUKAST NA 10 MG TABLET PO SCH (22:35)
[2021-05-23] MEDS: MELATONIN 5 MG TABLETS PO PRN (22:35)
[2021-05-23] MEDS: TOLTERODINE TARTRATE LA 4 MG CAP.SR.24H (FP) PO SCH (23:13)
[2021-05-24] MEDS ORDERED: PT OWN MED DRAWER 7, Y5N ONE ×2 (08:47→18:30)
[2021-05-24] MEDS ORDERED: FUROSEMIDE 40 MG TABLET (FP) PO SCH (10:00)
[2021-05-24] MEDS: MULTIVITAMINS THER W-MINERALS COMBO TABLET (FP) PO SCH (12:37)
[2021-05-24] MEDS: CHOLECALCIFEROL (VIT D3) 1,000 UNIT (25 MCG) TABLET PO SCH (12:37)
[2021-05-24] MEDS: AMIODARONE HCL 200 MG TABLET PO SCH (12:37)
[2021-05-24] MEDS: APIXABAN 5 MG TABLET PO SCH ×2 (12:37→21:02)
[2021-05-24] MEDS: PANTOPRAZOLE 40 MG TABLET PO SCH (12:37)
[2021-05-24] MEDS: ZINC SULFATE 220 MG CAPSULE (FP) PO SCH (12:37)
[2021-05-24] MEDS: metoPROLOL SUCCINATE 25 MG TAB.SR.24H (FP) PO SCH (12:38)
[2021-05-24] MEDS: NYSTATIN 100000 UNIT/GM TOPICAL OINTMENT 15 GM TUBE TP SCH ×2 (12:38→21:02)
[2021-05-24] MEDS: ASCORBIC ACID 250 MG TABLET (FP) PO SCH (12:38)
[2021-05-24] MEDS: FLUTICASONE/UMECLIDIN/VILANTER(100-62.5-25 TRELEGY ELLIPTA) INAHLER IH SCH (12:38)
[2021-05-24] MEDS: CEFUROXIME AXETIL 500 MG TABLET PO SCH ×2 (12:38→18:56)
[2021-05-24] MEDS: BACITRACIN 15 GM TUBE TOPICAL OINTMENT TP SCH ×2 (12:38→21:01)
[2021-05-24] MEDS: ZINC OXIDE 20% TOPICAL OINTMENT 30 GM TUBE TP SCH ×2 (12:39→21:02)
[2021-05-24] MEDS: methylPREDNISolone NA SUCC 40 MG/1 ML VIAL IVPUSH SCH (14:23)
[2021-05-24] MEDS: guaiFENesin/D-METHORPHAN HB 10 ML UNIT-DOSE CUPS PO PRN (20:55)
[2021-05-24] MEDS: MELATONIN 5 MG TABLETS PO PRN (20:57)
[2021-05-24] MEDS: ATORVASTATIN CA 40 MG TABLET (FP) PO SCH (21:00)
[2021-05-24] MEDS: MONTELUKAST NA 10 MG TABLET PO SCH (21:00)
[2021-05-24] MEDS: EZETIMIBE 10 MG TABLET (FP) PO SCH (21:00)
[2021-05-24] MEDS: TOLTERODINE TARTRATE LA 4 MG CAP.SR.24H (FP) PO SCH (21:01)
[2021-05-25] MEDS ORDERED: predniSONE 20 MG TABLET (UD) PO SCH (10:00)
[2021-05-25] MEDS: CEFUROXIME AXETIL 500 MG TABLET PO SCH (10:25)
[2021-05-25] MEDS: CHOLECALCIFEROL (VIT D3) 1,000 UNIT (25 MCG) TABLET PO SCH (10:26)
[2021-05-25] MEDS: ASCORBIC ACID 250 MG TABLET (FP) PO SCH (10:26)
[2021-05-25] MEDS: APIXABAN 5 MG TABLET PO SCH (10:26)
[2021-05-25] MEDS: AMIODARONE HCL 200 MG TABLET PO SCH (10:26)
[2021-05-25] MEDS: ZINC SULFATE 220 MG CAPSULE (FP) PO SCH (10:26)
[2021-05-25] MEDS: PANTOPRAZOLE 40 MG TABLET PO SCH (10:26)
[2021-05-25] MEDS: metoPROLOL SUCCINATE 25 MG TAB.SR.24H (FP) PO SCH (10:26)
[2021-05-25] MEDS: NYSTATIN 100000 UNIT/GM TOPICAL OINTMENT 15 GM TUBE TP SCH (10:27)
[2021-05-25] MEDS: BACITRACIN 15 GM TUBE TOPICAL OINTMENT TP SCH (10:27)
[2021-05-25] MEDS: MULTIVITAMINS THER W-MINERALS COMBO TABLET (FP) PO SCH (10:27)
[2021-05-25] MEDS: FLUTICASONE/UMECLIDIN/VILANTER(100-62.5-25 TRELEGY ELLIPTA) INAHLER IH SCH (10:28)
[2021-05-25] MEDS: ZINC OXIDE 20% TOPICAL OINTMENT 30 GM TUBE TP SCH (10:28)
[2021-05-25 10:43] VITALS: BP 142/63; PULSE 60; TEMP 98
[2021-05-25] MEDS ORDERED: PT OWN MED DRAWER 7, Y5N ONE (11:12)
== END 2021-05-25 13:00 | DRG 177 ==
LOC: JER 18:38 → JERBED 22:30 → J4S 05-11 21:13 → J8W 05-22 01:04
PROVIDERS: ADMIT Internal Medicine; ATTEND Internal Medicine
PROC: 30233N1 Transfusion of Nonautologous Red Blood Cells into Peripheral Vein, Percutaneous Approach (ICD-10-PCS; 2021-05-10)
PROC: XW033E5 Introduction of Remdesivir Anti-infective into Peripheral Vein, Percutaneous Approach, New Technology Group 5 (ICD-10-PCS; principal; 2021-05-11)
DX: U07.1 COVID-19 (principal); J12.82 Pneumonia due to coronavirus disease 2019; L89.153 Pressure ulcer of sacral region, stage 3; I50.33 Acute on chronic diastolic (congestive) heart failure; J44.1 Chronic obstructive pulmonary disease with (acute) exacerbation; I50.32 Chronic diastolic (congestive) heart failure; J44.0 Chronic obstructive pulmonary disease with (acute) lower respiratory infection; I11.0 Hypertensive heart disease with heart failure; J45.909 Unspecified asthma, uncomplicated; Z99.81 Dependence on supplemental oxygen; E78.00 Pure hypercholesterolemia, unspecified; I48.0 Paroxysmal atrial fibrillation; I25.119 Atherosclerotic heart disease of native coronary artery with unspecified angina pectoris; K74.60 Unspecified cirrhosis of liver; G47.00 Insomnia, unspecified; E66.9 Obesity, unspecified; Z91.040 Latex allergy status; Z88.0 Allergy status to penicillin; Z77.22 Contact with and (suspected) exposure to environmental tobacco smoke (acute) (chronic); R09.02 Hypoxemia; Z98.2 Presence of cerebrospinal fluid drainage device; Z68.32 Body mass index [BMI] 32.0-32.9, adult
CPT/HCPCS: 36415; 36430; 71045-TC-FY; 80048; 80053; 82272; 82550; 82728; 83615; 83735; 83880; 84484; 85025; 85379; 85384; 85610; 85730; 86140; 86850; 86900; 86901; 86922; 87040; 87899; 93005; 93010; 93306-TC; 97116-GP; 97161-GP; 99285-25; C9399; C9803; J1100; P9058; U0003; U0005